=== PATIENT | male | born 1985 | race Caucasian/White ===

== ENCOUNTER 2022-02-27 19:41 | Inpatient (IN) | payer SELFPAY ==
[2022-02-27] MEDS ORDERED: DEXAMETHASONE SOD PHOSPHATE 10 MG/1 ML VIAL ONE (20:03)
[2022-02-27] MEDS ORDERED: RAPID SEQUENCE INTUBATION KIT NR ONE (20:09)
[2022-02-27] MEDS ORDERED: ALBUTEROL SO4 2.5/IPRATROPIUM 0.5 INH SOL 3 ML VIAL.NEB. NEB ONE (20:23)
[2022-02-27] MEDS ORDERED: PROPOFOL 1,000,000 MCG/100 ML VIAL IVPB SCH (20:45)
[2022-02-27] MEDS ORDERED: FENTANYL IVPB 500 MCG/100 ML BAG IVPB SCH (20:45)
[2022-02-27] MEDS ORDERED: PROPOFOL 1,000,000 MCG/100 ML VIAL ONE (20:48)
[2022-02-27 20:49] LABS: BASO % 0.3 % (0-2.0); EOS % 10.2 % (0-4.5); HEMATOCRIT 44.2 % (35.4-49); HEMOGLOBIN 14.3 GM/dL (11.7-16.9); LYMPH % 10.7 % (8-40); MCH 26.5 pg (25.7-33.7); MCHC 32.3 g/dl (32.0-35.9); MEAN PLT VOLUME 7.5 fl (7.5-11.1); MONO % 7.2 % (3.8-10.2); NEUT % 71.6 % (42.8-82.8); PLATELET COUNT 293 10^3/uL (134-434); RBC 5.39 M/mm3 (4.00-5.60); RDW 13.8 % (11.9-15.9); WHITE BLOOD COUNT 25.3 K/mm3 (4.0-10.0)
[2022-02-27] MEDS ORDERED: MIDAZOLAM HCL 5 MG/1 ML Single Dose Vial ONE ×2 (20:51→21:02)
[2022-02-27 21:00] LABS: INR 1.03 (0.83-1.09); PROTHROMBIN TIME (PATIENT) 11.9 SEC (9.7-13.0)
[2022-02-27 21:03] LABS: ACTIVATED PTT 31.7 SECONDS (25.2-36.5)
[2022-02-27 21:08] LABS: VENOUS BASE EXCESS -7.6 mmol/L (-2-2); VENOUS O2 SATURATION 97.4 % (70-80); VENOUS PCO2 63.4 mmHg (38-52)
[2022-02-27 21:13] LABS: BLOOD UREA NITROGEN 12.5 mg/dL (7-18)
[2022-02-27 21:14] LABS: ALBUMIN 3.6 g/dl (3.4-5.0)
[2022-02-27 21:15] LABS: VENOUS PH 7.161 (7.310-7.410)
[2022-02-27] MEDS ORDERED: diazePAM CARPU-JECT 10 MG/2 ML DISP.SYRIN ONE (21:15)
[2022-02-27 21:17] LABS: CREATININE 1.2 mg/dL (0.55-1.3)
[2022-02-27 21:18] LABS: BILIRUBIN,TOTAL 0.4 mg/dL (0.2-1); TOT PROT 6.7 g/dl (6.4-8.2)
[2022-02-27 21:21] LABS: N-TERMINAL BNP 438.5 pg/ml (5-125)
[2022-02-27 21:27] LABS: ANISOCYTOSIS 0; MACROCYTOSIS 0
[2022-02-27] MEDS ORDERED: FENTANYL NS IVPB 500 MCG/100 ML BAG IVPB ONE (21:34)
[2022-02-27 21:36] LABS: LACTIC ACID 2.7 mmol/L (0.4-2.0)
[2022-02-27] MEDS ORDERED: ALBUTEROL SO4 0.083% IH SOL 2.5 MG/3 ML VIAL.NEB. NEB ONE (21:43)
[2022-02-27] MEDS ORDERED: MAGNESIUM SULF 50% (8.12 MEQ/2 ML-1 GM VIAL) IVPB ONE (21:46)
[2022-02-27] MEDS ORDERED: diazePAM CARPU-JECT 10 MG/2 ML DISP.SYRIN IVPUSH ONE ×2 (21:49→22:12)
[2022-02-27] MEDS ORDERED: MIDAZOLAM HCL 5 MG/1 ML Single Dose Vial IVPUSH ONE (21:49)
[2022-02-27] MEDS ORDERED: MAGNESIUM SULFATE IN WATER 2 GM/50 ML IVPB IVPB ONE (21:49)
[2022-02-27] MEDS ORDERED: LORazepam 2 MG TABLET PO ONE (21:49)
[2022-02-27] MEDS ORDERED: ROCURONIUM BROMIDE 50 MG/5 ML VIAL IV ONE (21:51)
[2022-02-27] MEDS ORDERED: ETOMIDATE 40 MG/20 ML VIAL IVPUSH ONE (21:51)
[2022-02-27 22:26] LABS: ARTERIAL BLD GAS O2 SATURATION 89.4 % (95-98); ARTERIAL BLOOD GAS BASE EXCESS -5.5 mmol/L (-2-2); ARTERIAL BLOOD GAS PO2 76.1 mmHg (80-100)
[2022-02-27 22:29] LABS: VENT MODE A/C
[2022-02-27 22:30] LABS: VENT RATE 10
[2022-02-27 22:31] LABS: ARTERIAL BLOOD GAS pH 7.113 (7.350-7.450)
[2022-02-27] MEDS ORDERED: MIDAZOLAM IN 0.9 % SOD.CHLORID 1 MG/1 ML PLAST..BAG ONE (22:38)
[2022-02-27 22:50] LABS: EPI CELLS 19 /uL (0-25.1); HYALINE CASTS 8 /uL (0-3.1); PH,URINE 5.5 (5.0-8.0); URINE APPEARANCE TURBID; URINE BACTERIA 12 /uL (0-1359); URINE BILIRUBIN NEGATIVE (NEGATIVE); URINE COLOR YELLOW; URINE GLUCOSE (UA) 2+ (NEGATIVE); URINE KETONE NEGATIVE (NEGATIVE); URINE LEUK ESTERASE NEGATIVE (NEGATIVE); URINE NITRITE NEGATIVE (NEGATIVE); URINE PROTEIN 2+ (NEGATIVE); URINE RBC 6 /uL (0-23.9); URINE UROBILINOGEN 0.2 mg/dL (0.2-1.0); URINE WBC 6 /uL (0-25.8)
[2022-02-27] MEDS: MIDAZOLAM IN 0.9 % SOD.CHLORID 100 MG/100 ML PLAST..BAG IVPB SCH (22:52)
[2022-02-27] MEDS ORDERED: LORazepam 2 MG/ML SDV VIAL IVPUSH ONE (22:52)
[2022-02-27] MEDS ORDERED: ALBUTEROL SO4 0.083% IH SOL 2.5 MG/3 ML VIAL.NEB. NEB STA ×2 (23:34)
[2022-02-27] MEDS ORDERED: TERBUTALINE SULFATE 1 MG/1 ML VIAL SQ STA (23:35)
[2022-02-27] MEDS ORDERED: VECURONIUM BROMIDE 10 MG/10 ML VIAL IV STA (23:40)
[2022-02-27] MEDS ORDERED: MINERAL OIL/PETROLATUM,WHITE 3.5 GM TUBE OU PRN (23:42)
[2022-02-27] MEDS ORDERED: VECURONIUM BROMIDE 100 MG/100 ML BAG IVPB SCH (23:45)
[2022-02-27] MEDS: ALBUTEROL SO4 0.083% IH SOL 2.5 MG/3 ML VIAL.NEB. NEB SCH (23:53)
[2022-02-28] MEDS ORDERED: VECURONIUM BROMIDE 20 MG/20 ML VIAL ONE (00:10)
[2022-02-28] MEDS: FENTANYL NS IVPB 500 MCG/100 ML BAG IVPB SCH ×4 (00:20→16:06)
[2022-02-28] MEDS: LACTATED RINGERS SOLUTION 1,000 ML/1,000 ML INFUS.BAG IV SCH ×2 (00:40→23:08)
[2022-02-28 01:33] LABS: OPIATES, URI NEGATIVE (NEGATIVE)
[2022-02-28 01:34] LABS: COCAINE, UR NEGATIVE (NEGATIVE); METHADONE, UR NEGATIVE (NEGATIVE); PHENCYCLIDINE,URINE NEGATIVE (NEGATIVE); URINE BARBITURATES NEGATIVE (NEGATIVE)
[2022-02-28 01:56] LABS: URINE AMPHETAMINES POSITIVE (NEGATIVE); URINE BENZODIAZEPINES POSITIVE (NEGATIVE)
[2022-02-28] MEDS ORDERED: DOCUSATE NA 100 MG/10 ML UNIT-DOSE CUPS NGT PRN (02:05)
[2022-02-28] MEDS: methylPREDNISolone NA SUCC 40 MG/1 ML VIAL IVPUSH SCH ×4 (02:42→21:58)
[2022-02-28] MEDS: PIPERACILLIN/TAZOB 4.5 GM 4.5 GM in DEXTROSE 5%-WATER 100 ML IVPB SCH ×3 (02:43→18:09)
[2022-02-28 03:16] LABS: ARTERIAL BLD GAS O2 SATURATION 99.7 % (95-98); ARTERIAL BLOOD GAS BASE EXCESS -4.9 mmol/L (-2-2); ARTERIAL BLOOD GAS PO2 341.7 mmHg (80-100); ARTERIAL BLOOD GAS pH 7.229 (7.350-7.450)
[2022-02-28 03:18] LABS: ALLENS TEST POSITIVE; VENT MODE A/C
[2022-02-28 03:19] LABS: VENT RATE 20
[2022-02-28] MEDS: ALBUTEROL SO4 0.083% IH SOL 2.5 MG/3 ML VIAL.NEB. NEB SCH ×5 (04:44→20:23)
[2022-02-28] MEDS: HEPARIN NA (PORCINE) 5,000 UNITS/ML 1ML VIAL SQ SCH ×3 (05:40→21:58)
[2022-02-28 06:58] LABS: HEMATOCRIT 44.6 % (35.4-49); HEMOGLOBIN 14.5 GM/dL (11.7-16.9); MCH 26.9 pg (25.7-33.7); MCHC 32.5 g/dl (32.0-35.9); MEAN CELL VOLUME 82.7 fl (80-96); MEAN PLT VOLUME 7.7 fl (7.5-11.1); PLATELET COUNT 247 10^3/uL (134-434); WHITE BLOOD COUNT 19.4 K/mm3 (4.0-10.0)
[2022-02-28] MEDS: MIDAZOLAM IN 0.9 % SOD.CHLORID 100 MG/100 ML PLAST..BAG IVPB SCH ×2 (07:00→16:05)
[2022-02-28 07:11] LABS: ARTERIAL BLD GAS O2 SATURATION 99.6 % (95-98); ARTERIAL BLOOD GAS BASE EXCESS -2.2 mmol/L (-2-2); ARTERIAL BLOOD GAS PO2 326.1 mmHg (80-100); ARTERIAL BLOOD GAS pH 7.236 (7.350-7.450)
[2022-02-28 07:13] LABS: ALLENS TEST POSITIVE
[2022-02-28 07:14] LABS: VENT MODE A/C; VENT RATE 20
[2022-02-28 07:16] LABS: CALCIUM 8.9 mg/dL (8.5-10.1)
[2022-02-28 07:17] LABS: BLOOD UREA NITROGEN 14.4 mg/dL (7-18); MAGNESIUM 2.7 mg/dL (1.8-2.4)
[2022-02-28 07:20] LABS: CREATININE 1.5 mg/dL (0.55-1.3); PHOSPHOROUS 3.1 mg/dL (2.5-4.9)
[2022-02-28] MEDS: PANTOPRAZOLE SODIUM 40 MG VIAL IVPUSH SCH (09:14)
[2022-02-28] MEDS ORDERED: AZITHROMYCIN IVPB 500 MG/250 ML BAG IVPB SCH (10:00)
[2022-02-28] MEDS ORDERED: PNEUMOC 20-VAL CONJ-DIP CRM/PF 0.5 ML SYRINGE IM ONE (10:00)
[2022-02-28] MEDS ORDERED: FLU VACC QS2022-23(6MOS UP)/PF 60 MCG/0.5 ML SYRINGE IM ONE (10:00)
[2022-02-28 13:46] LABS: HIV INTERPRETATION NEGATIVE (NEGATIVE)
[2022-02-28 13:59] LABS: LACTIC ACID 4.2 mmol/L (0.4-2.0)
[2022-02-28] MEDS ORDERED: LACTATED RINGERS SOLUTION 1000 ML INFUS.BAG IV ONE (14:04)
[2022-02-28] MEDS ORDERED: PROPOFOL 1,000,000 MCG/100 ML VIAL ONE (15:13)
[2022-02-28] MEDS ORDERED: PROPOFOL 1,000,000 MCG/100 ML VIAL IVPB SCH (15:15)
[2022-02-28 15:46] LABS: ARTERIAL BLD GAS O2 SATURATION 97.5 % (95-98); ARTERIAL BLOOD GAS BASE EXCESS 3.3 mmol/L (-2-2); ARTERIAL BLOOD GAS pH 7.416 (7.350-7.450)
[2022-02-28 15:47] LABS: ALLENS TEST POSITIVE
[2022-02-28 15:48] LABS: PT'S TEMP 99.8; VENT MODE AC; VENT RATE 14
[2022-02-28] MEDS: PIPERACILLIN/TAZOB 3.375 GM 3.375 GM in DEXTROSE 5%-WATER - 50 ML IVPB SCH (18:05)
[2022-02-28] MEDS: ACETAMINOPHEN 1000 MG/100 ML BAG IVPB PRN ×2 (18:39→23:47)
[2022-02-28 22:13] LABS: LACTIC ACID 3.6 mmol/L (0.4-2.0)
[2022-03-01] MEDS: LACTATED RINGERS SOLUTION 1,000 ML/1,000 ML INFUS.BAG IV SCH (02:34)
[2022-03-01] MEDS: PIPERACILLIN/TAZOB 3.375 GM 3.375 GM in DEXTROSE 5%-WATER - 50 ML IVPB SCH ×3 (02:37→17:33)
[2022-03-01] MEDS: methylPREDNISolone NA SUCC 40 MG/1 ML VIAL IVPUSH SCH ×4 (02:37→21:15)
[2022-03-01] MEDS: ALBUTEROL SO4 0.083% IH SOL 2.5 MG/3 ML VIAL.NEB. NEB SCH ×6 (03:00→21:58)
[2022-03-01] MEDS: HEPARIN NA (PORCINE) 5,000 UNITS/ML 1ML VIAL SQ SCH ×3 (06:28→21:16)
[2022-03-01 07:29] LABS: HEMATOCRIT 41.6 % (35.4-49); HEMOGLOBIN 13.1 GM/dL (11.7-16.9); MCH 25.7 pg (25.7-33.7); MCHC 31.5 g/dl (32.0-35.9); MEAN CELL VOLUME 81.6 fl (80-96); MEAN PLT VOLUME 8.2 fl (7.5-11.1); PLATELET COUNT 241 10^3/uL (134-434); RBC 5.09 M/mm3 (4.00-5.60); RDW 13.6 % (11.9-15.9); WHITE BLOOD COUNT 19.8 K/mm3 (4.0-10.0)
[2022-03-01 07:35] LABS: INR 1.08 (0.83-1.09); PROTHROMBIN TIME (PATIENT) 12.4 SEC (9.7-13.0)
[2022-03-01 07:37] LABS: ACTIVATED PTT 28.2 SECONDS (25.2-36.5)
[2022-03-01 07:53] LABS: CALCIUM 8.5 mg/dL (8.5-10.1)
[2022-03-01 07:54] LABS: ALBUMIN 3.2 g/dl (3.4-5.0); BLOOD UREA NITROGEN 15.8 mg/dL (7-18); MAGNESIUM 2.6 mg/dL (1.8-2.4)
[2022-03-01 07:57] LABS: CREATININE 0.9 mg/dL (0.55-1.3); PHOSPHOROUS 2.6 mg/dL (2.5-4.9)
[2022-03-01 07:59] LABS: BILIRUBIN,TOTAL 0.3 mg/dL (0.2-1); TOT PROT 6.2 g/dl (6.4-8.2)
[2022-03-01] MEDS: PANTOPRAZOLE SODIUM 40 MG VIAL IVPUSH SCH (09:04)
[2022-03-01 09:06] LABS: ANISOCYTOSIS 1+; MACROCYTOSIS 0
[2022-03-01 14:51] VITALS: BMI 34.5
[2022-03-01] MEDS ORDERED: chlordiazePOXIDE HCL 25 MG CAPSULE PO ONE (15:00)
[2022-03-01] MEDS ORDERED: chlordiazePOXIDE HCL 25 MG CAPSULE PO PRN (15:05)
[2022-03-01] MEDS: chlordiazePOXIDE HCL 25 MG CAPSULE PO SCH ×2 (18:47→22:01)
[2022-03-01] MEDS ORDERED: MELATONIN 5 MG TABLETS PO PRN (20:10)
[2022-03-02] MEDS: PIPERACILLIN/TAZOB 3.375 GM 3.375 GM in DEXTROSE 5%-WATER - 50 ML IVPB SCH ×2 (01:34→09:35)
[2022-03-02] MEDS: methylPREDNISolone NA SUCC 40 MG/1 ML VIAL IVPUSH SCH ×4 (02:40→17:15)
[2022-03-02] MEDS: HEPARIN NA (PORCINE) 5,000 UNITS/ML 1ML VIAL SQ SCH ×3 (05:31→22:09)
[2022-03-02] MEDS: chlordiazePOXIDE HCL 25 MG CAPSULE PO SCH ×4 (05:31→22:10)
[2022-03-02] MEDS: ALBUTEROL SO4 0.083% IH SOL 2.5 MG/3 ML VIAL.NEB. NEB SCH ×4 (06:18→20:00)
[2022-03-02] MEDS: PANTOPRAZOLE SODIUM 40 MG VIAL IVPUSH SCH (09:36)
[2022-03-02 10:54] LABS: HEMATOCRIT 39.7 % (35.4-49); MCH 26.6 pg (25.7-33.7); MCHC 32.7 g/dl (32.0-35.9); MEAN CELL VOLUME 81.5 fl (80-96); MEAN PLT VOLUME 8.2 fl (7.5-11.1); PLATELET COUNT 247 10^3/uL (134-434); RBC 4.88 M/mm3 (4.00-5.60); RDW 13.9 % (11.9-15.9); WHITE BLOOD COUNT 14.9 K/mm3 (4.0-10.0)
[2022-03-02 11:17] LABS: BLOOD UREA NITROGEN 17.7 mg/dL (7-18); CALCIUM 8.9 mg/dL (8.5-10.1); LACTIC ACID 3.4 mmol/L (0.4-2.0)
[2022-03-02 11:18] LABS: ALBUMIN 3.1 g/dl (3.4-5.0)
[2022-03-02 11:21] LABS: BILIRUBIN,TOTAL 0.5 mg/dL (0.2-1); TOT PROT 6.1 g/dl (6.4-8.2)
[2022-03-02] MEDS: LACTATED RINGERS SOLUTION 1,000 ML/1,000 ML INFUS.BAG IV SCH (12:00)
[2022-03-02 12:06] LABS: ANISOCYTOSIS 0; HELMET CELLS 0; HOWELL-JOLLY BODIES 0; MACROCYTOSIS 0; OVALOCYTE 0; ROULEAU 0; SICKELED CELLS 0; TARGET CELLS 0; TEAR DROP CELLS 0; TOXIC GRANULATION 0
[2022-03-02] MEDS: IBUPROFEN 200 MG TABLET PO PRN (14:11)
[2022-03-02] MEDS: PIPERACILLIN/TAZOB 4.5 GM 4.5 GM in DEXTROSE 5%-WATER 100 ML IVPB SCH (17:20)
[2022-03-02] MEDS ORDERED: PIPERACILLIN/TAZOB 4.5 GM 4.5 GM in DEXTROSE 5%-WATER 100 ML IVPB SCH (18:00)
[2022-03-02] MEDS ORDERED: DOCUSATE NA 100 MG/10 ML UNIT-DOSE CUPS NGT PRN (19:56)
[2022-03-03] MEDS: methylPREDNISolone NA SUCC 40 MG/1 ML VIAL IVPUSH SCH ×2 (01:25→09:19)
[2022-03-03] MEDS: PIPERACILLIN/TAZOB 4.5 GM 4.5 GM in DEXTROSE 5%-WATER 100 ML IVPB SCH (01:25)
[2022-03-03] MEDS: LACTATED RINGERS SOLUTION 1,000 ML/1,000 ML INFUS.BAG IV SCH ×2 (05:37→13:15)
[2022-03-03] MEDS: chlordiazePOXIDE HCL 25 MG CAPSULE PO SCH ×2 (06:15→11:33)
[2022-03-03] MEDS: HEPARIN NA (PORCINE) 5,000 UNITS/ML 1ML VIAL SQ SCH (06:15)
[2022-03-03] MEDS: ALBUTEROL SO4 0.083% IH SOL 2.5 MG/3 ML VIAL.NEB. NEB SCH (07:50)
[2022-03-03] MEDS: IBUPROFEN 200 MG TABLET PO PRN (09:19)
[2022-03-03] MEDS ORDERED: PANTOPRAZOLE SODIUM 40 MG VIAL IVPUSH SCH (10:00)
[2022-03-03 10:31] LABS: HEMATOCRIT 41.3 % (35.4-49); HEMOGLOBIN 13.2 GM/dL (11.7-16.9); MCH 25.9 pg (25.7-33.7); MEAN CELL VOLUME 81.2 fl (80-96); MEAN PLT VOLUME 8.3 fl (7.5-11.1); PLATELET COUNT 263 10^3/uL (134-434); RBC 5.09 M/mm3 (4.00-5.60); RDW 13.4 % (11.9-15.9); WHITE BLOOD COUNT 12.2 K/mm3 (4.0-10.0)
[2022-03-03 10:55] LABS: CALCIUM 8.5 mg/dL (8.5-10.1)
[2022-03-03 10:56] LABS: BLOOD UREA NITROGEN 12.4 mg/dL (7-18)
[2022-03-03 10:57] LABS: CREATININE 0.9 mg/dL (0.55-1.3)
[2022-03-03 10:59] LABS: BILIRUBIN,TOTAL 0.4 mg/dL (0.2-1)
[2022-03-03 11:01] LABS: LACTIC ACID 2.4 mmol/L (0.4-2.0)
[2022-03-03 11:14] LABS: ANISOCYTOSIS 0; HELMET CELLS 0; HOWELL-JOLLY BODIES 0; MACROCYTOSIS 0; OVALOCYTE 0; ROULEAU 0; SICKELED CELLS 0; TARGET CELLS 0; TEAR DROP CELLS 0; TOXIC GRANULATION 0
[2022-03-03 14:28] VITALS: BP 136/80; PULSE 65; RESP 18; TEMP 98.3
[2022-03-04] MEDS ORDERED: chlordiazePOXIDE HCL 10 MG CAPSULE PO PRN
[2022-03-04] MEDS ORDERED: chlordiazePOXIDE HCL 10 MG CAPSULE PO SCH (05:00)
[2022-03-05] MEDS ORDERED: chlordiazePOXIDE HCL 10 MG CAPSULE PO SCH (05:00)
[2022-03-06] MEDS ORDERED: chlordiazePOXIDE HCL 10 MG CAPSULE PO ONE (05:00)
== END 2022-03-03 15:56 | disposition home or self-care (01) | DRG 144 ==
LOC: JER 19:41 → JERBED 20:14 → JICU 23:27 → J6S 03-01 19:12
PROVIDERS: ADMIT Internal Medicine Pulmonary Disease
PROC: 0BH17EZ Insertion of Endotracheal Airway into Trachea, Via Natural or Artificial Opening (ICD-10-PCS; principal; 2022-02-27)
PROC: 5A1945Z Respiratory Ventilation, 24-96 Consecutive Hours (ICD-10-PCS; 2022-02-27)
PROC: HZ2ZZZZ Detoxification Services for Substance Abuse Treatment (ICD-10-PCS; 2022-03-01)
DX: U07.0 Vaping-related disorder (principal); J96.01 Acute respiratory failure with hypoxia; J96.02 Acute respiratory failure with hypercapnia; N39.0 Urinary tract infection, site not specified; N17.9 Acute kidney failure, unspecified; J98.01 Acute bronchospasm; J69.0 Pneumonitis due to inhalation of food and vomit; R45.1 Restlessness and agitation; E66.9 Obesity, unspecified; Z68.34 Body mass index [BMI] 34.0-34.9, adult; F13.10 Sedative, hypnotic or anxiolytic abuse, uncomplicated; F41.8 Other specified anxiety disorders; T50.905A Adverse effect of unspecified drugs, medicaments and biological substances, initial encounter; E87.20 Acidosis, unspecified
CPT/HCPCS: 0241U-QW; 31500; 36415; 36600; 71045-TC-FY; 80048; 80053; 80307; 81003; 82803; 83605; 83735; 83880; 84100; 84484; 85025; 85027; 85610; 85730; 86780; 86850; 86900; 86901; 87040; 87070; 87077; 87086; 87205; 87389; 87491; 87591; 87899; 90677; 93005; 93010; 94002; 94640; 99291; G0008; J1644; Q2036